=== PATIENT | male | born 1995 | race Two or more races ===

== ENCOUNTER 2016-09-02 11:28 | Emergency (ER) | payer MEDICAID ==
[~2016-09-02] VITALS: Ht 175.3 cm; Wt 81.6 kg
[2016-09-02 11:37] VITALS: BP 147/72
[2016-09-02] MEDS ORDERED: Lidocaine 1% MPF 10mg/ml 5ml ONE (12:04)
--- NOTE | 2016-09-02 12:38 | Emergency Room Report ---
History of Present Illness General Chief Complaint: General Complaint Source: Patient Present Illness [facility] Patient with rash on penis and clear d/c. Had 2 encounters without condoms. Slight dysuria. No prior STDs. There were some blisters on the penis. [facility] told "[facility]" within the last week. Had HIV testing there which was negative. R inguinal node swollen. No fevers, hematuria, NVD other rashes. Allergies: Coded Allergies: SULFA (SULFONAMIDE ANTIBIOTICS) (Verified Allergy, Unknown, 09/02/16) Patient History Past Medical History: see triage record Social History Narrative at home Reviewed Nursing Documentation: PMH: Agreed, PSxH: Agreed Nursing Documentation-PMH Past Medical History: No Stated History Review of Systems All Other Systems: negative except mentioned in HPI Physical Exam Vital Signs Date Time Temp Pulse Resp B/P Pulse Ox O2 Delivery O2 Flow Rate FiO2 09/02/16 11:31 98.1 51 17 147/72 98 Room Air Sp02 EP Interpretation: reviewed, normal General Appearance: well appearing, no apparent distress Head: normocephalic, atraumatic Eyes: bilateral eye normal inspection ENT: hearing grossly normal, normal voice, moist mucus membranes Neck: full range of motion, supple Respiratory: no respiratory distress, speaking full sentences Genitourinary: other - lesions with blistering and in process of healing. Clear d/c Musculoskeletal: digits/nails normal, gait/station normal, normal range of motion Neurologic: alert, normal gait Psychiatric: mood/affect normal Skin: other - see genitals Lymphatic: other - R inguinal node Medical Decision Making Diagnostic Impression: Primary Impression: Urethral discharge Additional Impression: Herpes ER Course Patient presents with d/c, penile lesions and node. Exam c/w herpes and chlamydia. Will send lab tests and treat. Patient stable for outpatient observation and treatment. Last Vital Signs Date Time Temp Pulse Resp B/P Pulse Ox O2 Delivery O2 Flow Rate FiO2 09/02/16 12:59 98.1 17 147/72 98 Room Air 09/02/16 11:37 51 Status: improved Disposition: HOME, SELF-CARE Condition: Improved Scripts Doxycycline Hyclate* (VIBRAMYCIN*) 100 Mg Capsule 100 MG ORAL EVERY 12 HOURS, #14 CAP 0 Refills Prov: Jhonny Black M.D. 09/02/16 Valacyclovir Hcl (VALACYCLOVIR) 1,000 Mg Tablet 1000 MG ORAL BID, #14 TAB Prov: Jhonny Black M.D. 09/02/16 Referrals: NON PHYSICIAN (PCP) Jhonny Black M.D. Sep 02, 2016 12:38
[2016-09-02 12:42] LABS: APPEARANCE,URINE CLEAR; KETONES,URINE NEGATIVE (NEGATIVE); LEUKOCYTE ESTERASE ,URINE 1+ (NEGATIVE); NITRITE,URINE NEGATIVE (NEGATIVE); PROTEIN,URINE NEGATIVE (NEGATIVE); UROBILINOGEN,URINE 1 MG/DL (0.0-1.0)
[2016-09-02] MEDS ORDERED: VALACYCLOVIR1000 MG ORAL (12:42)
[2016-09-02] MEDS ORDERED: VIBRAMYCIN100 MG ORAL (12:42)
[2016-09-02 12:43] LABS: BACTERIA,URINE OCCASIONAL /HPF; SQUAMOUS EPITHELIAL CELL,UR OCCASIONAL /LPF (NONE/OCC)
[2016-09-02 12:59] VITALS: BP 147/72
== END 2016-09-02 12:59 | disposition home or self-care (01) ==
LOC: EMR 11:55
DX: R36.9 Urethral discharge, unspecified (principal); B00.9 Herpesviral infection, unspecified; Z88.2 Allergy status to sulfonamides
CPT/HCPCS: 81003; 87590; 96372; 99284; J0696

== ENCOUNTER 2016-12-08 11:23 | Emergency (ER) | payer MEDICAID ==
[~2016-12-08] VITALS: Ht 175.3 cm; Wt 79.4 kg
[~2016-12-08 11:23] MED LIST: VALACYCLOVIR1000 MG ORAL; VIBRAMYCIN100 MG ORAL
[2016-12-08 12:09] VITALS: BP 133/78
[2016-12-08] MEDS ORDERED: VALACYCLOVIR500 MG ORAL (12:11)
[2016-12-08 12:16] VITALS: BP 133/78
--- NOTE | 2016-12-08 14:11 | Emergency Room Report ---
History of Present Illness General Chief Complaint: Medication Refill Source: Patient Present Illness HPI The patient is a 21 yo M presenting for possible herpes outbreak. He has had herpes in the past and this feels the same. Symptoms began 2 days prior when he noticed bumps around the penis with some pain. he denies any pain at this time. he denies dysuria, penile DC, hematuria, abd pain, fever, chills, or any other symptoms Allergies: Coded Allergies: SULFA (SULFONAMIDE ANTIBIOTICS) (Verified Allergy, Unknown, 09/02/16) Patient History Past Medical History: see triage record Pertinent Family History: none Reviewed Nursing Documentation: PMH: Agreed, PSxH: Agreed Nursing Documentation-PMH Past Medical History: No Stated History Review of Systems All Other Systems: negative except mentioned in HPI Physical Exam Vital Signs Date Time Temp Pulse Resp B/P Pulse Ox O2 Delivery O2 Flow Rate FiO2 12/08/16 11:40 98.2 59 20 133/78 100 Room Air Sp02 EP Interpretation: reviewed, normal General Appearance: no apparent distress, alert, GCS 15, non-toxic Head: normocephalic, atraumatic Eyes: bilateral eye PERRL, bilateral eye normal inspection ENT: hearing grossly normal, normal pharynx, no angioedema, normal voice Genitourinary: no CVA tenderness, penis normal, other - herpetic lesions Musculoskeletal: back normal, gait/station normal, normal range of motion, non- tender Neurologic: alert, oriented x3, responsive, motor strength/tone normal, sensory intact, speech normal Psychiatric: judgement/insight normal, memory normal, mood/affect normal, no suicidal/homicidal ideation Skin: rash - herpetic lesions on pubic region Lymphatic: no adenopathy Medical Decision Making PA Attestation Dr. Blum is my supervising physician. Patient management was discussed with my supervising physician Diagnostic Impression: Primary Impression: Genital herpes Qualified Codes: A60.00 - Herpesviral infection of urogenital system, unspecified ER Course The patient is a 21 yo M presenting for possible herpes outbreak Ddx considered include but not limited to insect bite, contact dermatitis, herpes, STD, among others PE: afebrile. Herpetic lesions of the pubic region The patient will be treated with antiviral as the outbreak began 2 days prior. ER precautions given Last Vital Signs Date Time Temp Pulse Resp B/P Pulse Ox O2 Delivery O2 Flow Rate FiO2 12/08/16 12:16 98.2 20 133/78 100 Room Air 12/08/16 11:40 59 Status: improved Disposition: HOME, SELF-CARE Condition: Improved Scripts Valacyclovir Hcl* (VALTREX*) 500 Mg Tablet 1000 MG ORAL TWICE A DAY, #14 TAB Prov: WILFREDO SMITH 12/08/16 Referrals: JASEN ROSS,REFERRING (PCP) Patient Instructions: Genital Herpes Additional Instructions: I discussed my findings with the patient. All questions and concerns have been answered. Treatment and medication compliance have been addressed. I advised the patient that they need to follow up with PMD in 3-5 days. Return to ED if symptoms worsen, new symptoms arise, or if needed for any reason. Patient verbalized understanding of discharge instructions. WILFREDO SMITH Dec 08, 2016 14:11
== END 2016-12-08 12:15 | disposition home or self-care (01) ==
LOC: EMR 12:10
DX: A60.00 Herpesviral infection of urogenital system, unspecified (principal); Z88.2 Allergy status to sulfonamides
CPT/HCPCS: 99283